=== PATIENT | female | born 1955 | race Caucasian/White ===

== ENCOUNTER 2021-08-10 10:07 | Emergency (ER) | payer MEDICAID, MEDICARE | END 2021-08-10 12:30 | disposition home or self-care (01) | LOC: JP.ED 10:07 | DX: S62.345A Nondisplaced fracture of base of fourth metacarpal bone, left hand, initial encounter for closed fracture (principal); S01.21XA Laceration without foreign body of nose, initial encounter; W22.09XA Striking against other stationary object, initial encounter | CPT/HCPCS: 29125; 73130-26-LT; 73130-LT; 99282; 99283-25 ==